=== PATIENT | female | born 1930 | race Caucasian/White ===

== ENCOUNTER 2019-05-15 17:35 | Inpatient (IN) | payer MEDICARE ==
[2019-05-15 17:52] LABS: ABS Lymphocytes 0.1 10^3/ul (1.0-4.8); ABS Neutrophils 4.3 10^3/ul (1.5-7.7); Eosinophil % 0.2 %; Hematocrit 32 % (35-47); Hemoglobin 10.9 g/dL (12.0-16.0); Lymphocyte % 1.8 %; Mean Corpuscular HGB Conc 34 g/dL (31-36); Mean Corpuscular Hemoglobin 32 pg (27-31); Mean Corpuscular Volume 93 fL (80-97); Mean Platelet Volume 9.8 fL (7.4-10.4); Nucleated Red Blood Cells % 0.1; Platelet Count 189 10^3/uL (150-450); Red Blood Count 3.47 10^6 /uL (3.70-4.87); Red Cell Distribution Width 17 % (10-15); White Blood Count 4.4 10^3/uL (3.5-10.8)
[2019-05-15 18:01] LABS: Activated Partial Thrombo Time 23.7 seconds (26.0-38.0); INR 0.9 (0.82-1.09)
[2019-05-15 18:09] LABS: ALT 27 U/L (7-52); AST 25 U/L (13-39); Albumin 3.2 g/dL (3.2-5.2); Albumin/Globulin Ratio 1.1 (1-3); Alkaline Phosphatase 94 U/L (34-104); Anion Gap 9 mmol/L (2-11); BUN/Creatinine Ratio 21.7 (8-20); Blood Urea Nitrogen 68 mg/dL (6-24); C Reactive Protein 79.93 mg/L (<8.01); CO2 Carbon Dioxide 19 mmol/L (22-32); Calcium 9.8 mg/dL (8.6-10.3); Chloride 106 mmol/L (101-111); Creatine Kinase 159 U/L (10-223); EGFR African American 16.9 (>60); Globulin 2.8 g/dL (2-4); Glucose 322 mg/dL (70-100); Potassium 5.1 mmol/L (3.5-5.0); Sodium 134 mmol/L (135-145)
[2019-05-15 18:12] LABS: CKMB ng/mL 5.5 ng/mL (0.6-6.3)
--- NOTE | 2019-05-15 18:34 | ED ---
HPI Cardiac - HPI Summary HPI Summary: LEVEL 5 CAVEAT- DEMENTIA Pt is an 89 year old F presenting to [facility] by EMS accompanied by son, Cezar and son's SO, Elsi presents in severe respiratory distress with decreased mental status, nonverbal on arrival. Per [facility], who brought pt in on CPAP, pt has kidney failure, CHF, edema. Pt is a Hospice candidate. Per EMS O2 sats were in the 70's when they arrived and improved to the mid-80's with CPAP. Pt was admitted to [facility] yesterday. 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 Dr. Romero in room immediately upon arrival at 17:35. Bipap instated immediately. Vital signs while in room: HR 88 BP 100/74, O2 sat 84% on CPAP on arrival Pts son reports that pt was in [facility] and DC'd yesterday to [facility]. Pt has a DNR/DNI. He reports that pts left arms ecchymosis is due to a procedure done at [place] , but he does not know the details of that, because he was not in [place], his sister was, and she is not here in the ED because she is ill today. Son was with pt today and reports she seemed okay, eating, though nodding off. Son also reports that pt has had heart surgery in [place] in the past. Home Medications Medication Instructions Recorded Confirmed Type Acetaminophen TAB* [Tylenol TAB*] 650 mg PO Q4H PRN 05/15/19 05/15/19 History Albuterol HFA INHALER* [Ventolin 2 puff INH Q4H PRN 05/15/19 05/15/19 History HFA Inhaler*] Aspirin EC TAB* [Ecotrin EC Low 81 mg PO DAILY 05/15/19 05/15/19 History Dose 81 MG*] Atorvastatin* [Lipitor*] 80 mg PO DAILY 05/15/19 05/15/19 History Bumetanide TAB* [Bumex 1 MG TAB*] 1 mg PO DAILY 05/15/19 05/15/19 History Carvedilol TAB* [Coreg TAB*] 12.5 mg PO BID 05/15/19 05/15/19 History Clopidogrel TAB* [Plavix TAB*] 75 mg PO DAILY 05/15/19 05/15/19 History Glycerin ADULT SUPP* 1 supp NE DAILY PRN 05/15/19 05/15/19 History Insulin LISPRO* [HumaLOG*] 2 units SUBCUT AC 05/15/19 05/15/19 History Magnesium Hydroxide LIQ* [Milk of 30 ml PO Q72HR PRN 05/15/19 05/15/19 History Magnesia LIQ*] Multivitamins/Minerals TAB* 1 tab PO DAILY 05/15/19 05/15/19 History [Theragran/minerals TAB*] NIFEdipine [Procardia Xl] 90 mg PO DAILY 05/15/19 05/15/19 History Pantoprazole TAB * [Protonix TAB*] 40 mg PO DAILY 05/15/19 05/15/19 History Sodium Phosphate,[place]-Dibasic 133 ml NE DAILY PRN 05/15/19 05/15/19 History [Enema Ready To Use] hydrALAZINE TAB* [Apresoline TAB*] 25 mg PO TID 05/15/19 05/15/19 History LEVEL 5 CAVEAT- DEMENTIA - History of Current Complaint Chief Complaint: EDRespiratoryDistress Stated Complaint: DIFFICULTY BREATHING PER EMS Time Seen by Provider: 05/15/19 17:38 Hx Obtained From: Family/Specialist Field Engineer - son, and son's SO, EMS Hx From Patient Unobtainable Due To: Extremis - pt nonverbal due to respiratory distress Onset/Duration: Started Hours Ago Timing: Constant Initial Severity: Severe Current Severity: Severe Pain Intensity: 0 - no pain, severity describes SOB Pain Scale Used: 0-10 Numeric Chest Pain Radiates: No Aggravating Factor(s): Nothing Alleviating Factor(s): Nothing Associated Signs and Symptoms: Positive: Shortness of Breath, Other: - decreased mental status - Allergy/Home Medications Allergies/Adverse Reactions: Allergies Allergy/AdvReac Type Severity Reaction Status Date / Time No Known Allergies Allergy Verified 03/16/15 18:15 Home Medications: Home Medications Acetaminophen TAB* [Tylenol TAB*] 650 mg PO Q4H PRN 05/15/19 [History Confirmed 05/15/19] Albuterol HFA INHALER* [Ventolin HFA Inhaler*] 2 puff INH Q4H PRN 05/15/19 [ History Confirmed 05/15/19] Aspirin EC TAB* [Ecotrin EC Low Dose 81 MG*] 81 mg PO DAILY 05/15/19 [History Confirmed 05/15/19] Atorvastatin* [Lipitor*] 80 mg PO DAILY 05/15/19 [History Confirmed 05/15/19] Bumetanide TAB* [Bumex 1 MG TAB*] 1 mg PO DAILY 05/15/19 [History Confirmed 01/02] Carvedilol TAB* [Coreg TAB*] 12.5 mg PO BID 05/15/19 [History Confirmed 05/15/19 ] Clopidogrel TAB* [Plavix TAB*] 75 mg PO DAILY 05/15/19 [History Confirmed ] Glycerin ADULT SUPP* 1 supp NE DAILY PRN 05/15/19 [History Confirmed 05/15/19] Insulin LISPRO* [HumaLOG*] 2 units SUBCUT AC 05/15/19 [History Confirmed ] Magnesium Hydroxide LIQ* [Milk of Magnesia LIQ*] 30 ml PO Q72HR PRN 05/15/19 [ History Confirmed 05/15/19] Multivitamins/Minerals TAB* [Theragran/minerals TAB*] 1 tab PO DAILY 05/15/19 [ History Confirmed 05/15/19] NIFEdipine [Procardia Xl] 90 mg PO DAILY 05/15/19 [History Confirmed 05/15/19] Pantoprazole TAB * [Protonix TAB*] 40 mg PO DAILY 05/15/19 [History Confirmed ] Sodium Phosphate,[place]-Dibasic [Enema Ready To Use] 133 ml NE DAILY PRN 05/15/19 [History Confirmed 05/15/19] hydrALAZINE TAB* [Apresoline TAB*] 25 mg PO TID 05/15/19 [History Confirmed 01/02] PMH/Surg Hx/FS Hx/Imm Hx Previously Healthy: No - LEVEL 5 CAVEAT- EXTREMIS Endocrine/Hematology History: Reports: Hx Diabetes Denies: Hx Thyroid Disease Cardiovascular History: Reports: Hx Angina, Hx Atrial Fibrillation, Hx Cardiomegaly - per CXR, Hx Congestive Heart Failure - diastolic , Hx Hypercholesterolemia, Hx Hypertension, Hx Myocardial Infarction Denies: Hx Syncope Respiratory History: Denies: Hx Asthma, Hx Chronic Obstructive Pulmonary Disease (COPD) History: Reports: Hx Renal Disease - CKD, Other Problems/Disorders - UTI's Musculoskeletal History: Reports: Hx Arthritis, Hx Gout Denies: Hx Back Problems Sensory History: Reports: Hx Cataracts - removed, Hx Glaucoma, Hx Macular Degeneration Denies: Hx Hearing Problem Opthamlomology History: Reports: Hx Cataracts - removed, Hx Glaucoma, Hx Macular Degeneration Neurological History: Reports: Hx Dementia Denies: Hx Migraine, Hx Seizures - Surgical History Surgical History: Yes Surgery Procedure, Year, and Place: appendix. "heart surgery in [place]". ? heart cath with stent in [place], [place] DC'd 05/14/19 Infectious Disease History: Unable to Obtain/Confirm Infectious Disease History: Denies: Traveled Outside the [place] in Last 30 Days - Family History Known Family History: Positive: Hypertension - Social History [facility]: [facility] Alcohol Use: Rare Substance Use Type: Reports: None Smoking Status (MU): Former Smoker Review of Systems Constitutional: Negative Positive: Shortness Of Breath, Other - severe respiratory distress and hypoxia Skin: Negative Positive: Bruising - extensive bruising left forearm, also chest and right forearm Neurological: Other - lethargic, non verbal All Other Systems Reviewed And Are Negative: No - Comments Additional Review of Systems Comments: LEVEL 5 CAVEAT- EXTREMIS Physical Exam - Summary Physical Exam Summary: LEVEL 5 CAVEAT- DEMENTIA and EXTREMIS Appearance: Ill-appearing, no apparent acute pain distress, obese, in extremis on CPAP from EMS, changed to BiPAP on adm to ED, nonverbal Skin: Warm, color reflects adequate perfusion, dry, multiple purple ecchymoses on bilateral arms and chest Head: Normal Head/Face inspection, atraumatic Eyes: Conjunctiva clear, pupils midpoint, EOMI, prefers eyes closed ENT: Normal inspection Neck: Supple, no nodes, no JVD Respiratory: decreased BS throughout, crackles both bases, severe respiratory distress Cardio: RRR, No murmur, pulses normal, brisk capillary refill Abdomen: Soft, nontender Bowel sounds: Present Musculoskeletal: left forearm with confluent, circumferential dark purple ecchymosis from fingers to antecubital area, with 3cm blood blister on dorsum of hand at 4th/5th metacarpals, multiple purple ecchymoses across chest and right forearm 2+ edema bilaterally. Psychological: lethargic Neuro: Opens eyes to voice, has some words, muscle tone normal, facial symmetry , moves all extremities, no focal deficit. GCS 10 Triage Information Reviewed: Yes Vital Signs On Initial Exam: Initial Vitals Pulse Resp Pulse Ox 64 12 93 05/15/19 17:40 05/15/19 17:40 05/15/19 17:40 Vital Signs Reviewed: Yes - [place] Coma Scale Best Eye Response: 3 - To Speech Best Motor Response: 5 - Purposeful Movement Best Verbal Response: 2 - Incomprehensible Words Coma Scale Total: 10 Diagnostics - Vital Signs Vital Signs Temp Pulse Resp BP Pulse Ox 05/15/19 18:16 26 05/15/19 18:00 67 31 76/45 95 05/15/19 17:45 96.2 F 64 22 91/43 93 05/15/19 17:42 64 34 98 05/15/19 17:41 65 29 91/43 91 05/15/19 17:40 64 12 93 - Laboratory Lab Results: Lab Results 05/15/19 05/15/19 05/15/19 Range/Units 17:40 17:40 17:40 WBC 4.4 (3.5-10.8) 10^3/uL RBC 3.47 L (3.70-4.87) 10^6 /uL Hgb 10.9 L (12.0-16.0) g/dL Hct 32 L (35-47) % MCV 93 (80-97) fL MCH 32 H (27-31) pg MCHC 34 (31-36) g/dL RDW 17 H (10-15) % Plt Count 189 (150-450) 10^3/uL MPV 9.8 (7.4-10.4) fL Neut % (Auto) 97.6 % Lymph % (Auto) 1.8 % [place] % (Auto) 0.3 % Eos % (Auto) 0.2 % Baso % (Auto) 0.1 % Absolute Neuts (auto) 4.3 (1.5-7.7) 10^3/ul Absolute Lymphs (auto) 0.1 L (1.0-4.8) 10^3/ul Absolute Monos (auto) 0.0 (0-0.8) 10^3/ul Absolute Eos (auto) 0.0 (0-0.6) 10^3/ul Absolute Basos (auto) 0.0 (0-0.2) 10^3/ul Absolute Nucleated RBC 0.0 10^3/ul Nucleated RBC % 0.1 INR (Anticoag Therapy) 0.90 (0.82-1.09) APTT 23.7 L (26.0-38.0) seconds Sodium 134 L (135-145) mmol/L Potassium 5.1 H (3.5-5.0) mmol/L Chloride 106 (101-111) mmol/L Carbon Dioxide 19 L (22-32) mmol/L Anion Gap 9 (2-11) mmol/L BUN 68 H (6-24) mg/dL Creatinine 3.14 H (0.51-0.95) mg/dL Est GFR ( Amer) 16.9 (>60) Est GFR (Non-Af Amer) 14.0 (>60) BUN/Creatinine Ratio 21.7 H (8-20) Glucose 322 H (70-100) mg/dL Lactic Acid (0.5-2.0) mmol/L Calcium 9.8 (8.6-10.3) mg/dL Total Bilirubin 0.80 (0.2-1.0) mg/dL AST 25 (13-39) U/L ALT 27 (7-52) U/L Alkaline Phosphatase 94 (34-104) U/L Total Creatine Kinase 159 (10-223) U/L CK-MB (CK-2) 5.5 (0.6-6.3) ng/mL Troponin I 0.20 H* (<0.04) ng/mL C-Reactive Protein 79.93 H (<8.01) mg/L B-Natriuretic Peptide (<=100) pg/mL Total Protein 6.0 L (6.4-8.9) g/dL Albumin 3.2 (3.2-5.2) g/dL Globulin 2.8 (2-4) g/dL Albumin/Globulin Ratio 1.1 (1-3) 05/15/19 05/15/19 Range/Units 17:40 17:40 WBC (3.5-10.8) 10^3/uL RBC (3.70-4.87) 10^6 /uL Hgb (12.0-16.0) g/dL Hct (35-47) % MCV (80-97) fL MCH (27-31) pg MCHC (31-36) g/dL RDW (10-15) % Plt Count (150-450) 10^3/uL MPV (7.4-10.4) fL Neut % (Auto) % Lymph % (Auto) % [place] % (Auto) % Eos % (Auto) % Baso % (Auto) % Absolute Neuts (auto) (1.5-7.7) 10^3/ul Absolute Lymphs (auto) (1.0-4.8) 10^3/ul Absolute Monos (auto) (0-0.8) 10^3/ul Absolute Eos (auto) (0-0.6) 10^3/ul Absolute Basos (auto) (0-0.2) 10^3/ul Absolute Nucleated RBC 10^3/ul Nucleated RBC % INR (Anticoag Therapy) (0.82-1.09) APTT (26.0-38.0) seconds Sodium (135-145) mmol/L Potassium (3.5-5.0) mmol/L Chloride (101-111) mmol/L Carbon Dioxide (22-32) mmol/L Anion Gap (2-11) mmol/L BUN (6-24) mg/dL Creatinine (0.51-0.95) mg/dL Est GFR ( Amer) (>60) Est GFR (Non-Af Amer) (>60) BUN/Creatinine Ratio (8-20) Glucose (70-100) mg/dL Lactic Acid 2.0 (0.5-2.0) mmol/L Calcium (8.6-10.3) mg/dL Total Bilirubin (0.2-1.0) mg/dL AST (13-39) U/L ALT (7-52) U/L Alkaline Phosphatase (34-104) U/L Total Creatine Kinase (10-223) U/L CK-MB (CK-2) (0.6-6.3) ng/mL Troponin I (<0.04) ng/mL C-Reactive Protein (<8.01) mg/L B-Natriuretic Peptide 370 H (<=100) pg/mL Total Protein (6.4-8.9) g/dL Albumin (3.2-5.2) g/dL Globulin (2-4) g/dL Albumin/Globulin Ratio (1-3) Result Diagrams: 05/15/19 17:40 05/15/19 17:40 Lab Statement: Any lab studies that have been ordered have been reviewed, and results considered in the medical decision making process. - Radiology CXR Radiology Interpretation Completed By: ED Physician Summary of Radiographic Findings: vascular congestion, poor inspiration - EKG 1746 Cardiac Rate: NL - 63 EKG Rhythm: Sinus Rhythm ST Segment: Non-Specific Ectopy: None Summary of EKG Findings: An EKG at 1746 reveals 1st degree AV block, Right Bundle Branch Block, nml QTC, left axis (-83), No STEMI, no significant change since 03/19/15. Re-Evaluation - Re-Evaluation First Eval Change: Worse Comment: Pt blood pressure dropped. Vitals HR 65 bpm, BP 76/74, O2 sat 85%. Head of bed lowered. Pt opened eyes to voice, and uttered some words, incomprehensible. Second Eval Re-Evaluation Time: 18:25 Change: Unchanged Comment: Dr. Romero aware of Troponin of 0.2 at 18:25. Disposition - Course Course Of Treatment: 89 yo F arrives by EMS from [facility] in severe respiratory distress on CPAP. Pt is a DNR/DNI. Pt was just DC'd from [facility] yesterday and admitted to [facility]. Pt's left arm with large ecchymosis may be due to bruising from left radial cardiac catheterization , because son states something about a stent, but does not know details. States his sister knows the details, but she is sick, and lives in [place], so is not in the ED at this time. Pt was placed on BiPAP by respiratory therapy (), and BP dropped some but pt improved enough to say some short bursts of words. Son and son's SO in the room. Dr. Vinesl in with pt and family to determine level of care. An EKG at 1746 reveals SR 1st degree AV block, Right Bundle Branch Block, nml QTC, left axis (-83), No STEMI, no significant change since 03/19/15. CXR with vascular congestion. Pt with respiratory failure, elevated troponin, hyperkalemia, elevated glucose, elevated BNP, anemia, CKD stage 5. Dr. Beck accepts pt for admission. - Differential Dx - Cardiopulmonary Differential Diagnoses - Cardiopulmonary: Acute Dyspnea, Aortic Stenosis, CAD, CHF, Lower Resp Infection, Pulmonary Edema - Diagnoses Provider Diagnoses: Respiratory failure, Elevated troponin, CKD (chronic kidney disease) stage 5, GFR less than 15 ml/min, Hyperkalemia, Hyperglycemia due to type 2 diabetes mellitus, Hypotension, Anemia, Hematoma of arm - Physician Notifications Discussed Care Of Patient With: Alia Beck - admit Time Discussed With Above Provider: 18:15 Instructed by Provider To: Admit As Inpatient - Critical Care Time Critical Care Time: 30-74 min - 30 mins Discharge - Sign-Out/Discharge Documenting (check all that apply): Patient Departure - Admission All imaging exams completed and their final reports reviewed: No Patient Received Moderate/Deep Sedation with Procedure: No - Discharge Plan Condition: Guarded Disposition: ADMITTED TO [facility] - Billing Disposition and Condition Condition: GUARDED Disposition: Admitted to [facility] - Attestation Statements Document Initiated by Bandar: Yes Documenting Scribe: Charisse Sheets Provider For Whom Bandar is Documenting (Include Credential): Dr. Teagan Romero MD Scribe Attestation: Charisse Whitney scribed for Dr. Teagan Romero MD on 05/16/19 at 1542. Scribe Documentation Reviewed: Yes Provider Attestation: The documentation as recorded by the Charisse rodas accurately reflects the service I personally performed and the decisions made by , Dr. Teagan Romero MD Status of Scribe Document: Viewed
[2019-05-15] MEDS ORDERED: Morphine 4 MG/ML VIAL (1 ml) 4 MG/ML VIAL IV PRN (18:51)
[2019-05-15] MEDS ORDERED: Furosemide IV* 10 MG/ML VIAL (40 MG) IV ONE (18:52)
[2019-05-15] MEDS ORDERED: Morphine 4 MG/ML VIAL (1 ml) 4 MG/ML VIAL ONE (19:00)
[2019-05-15] MEDS: Morphine 4 MG/ML VIAL (1 ml) 4 MG/ML VIAL IV PRN ×2 (19:02→23:46)
[2019-05-15] MEDS ORDERED: Lorazepam PYXIS KEY PRN (20:49)
--- NOTE | 2019-05-15 23:23 | HP ---
HISTORY OF PRESENT ILLNESS: DATE OF ADMISSION: 05/15/19 PRIMARY CARE PROVIDER: [facility]. LOCKSTITCH LINING MAKER: The patient's son, Cezar oJe. CODE STATUS: DNR/DNI and comfort measures only. CHIEF COMPLAINT: Respiratory distress. SOURCE OF INFORMATION: HPI is obtained from family and chart history. The patient is a poor historian secondary to clinical status. 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 The patient has dementia at baseline and is oriented to herself and roughly event secondary to after suffering from stroke. Her son and daughter-in- law accompanied her from [facility] after she was briefly unresponsive and gasping for air. Per her son, who is her healthcare proxy, she has had numerous troubles with her heart. She was last here in [facility] [place] where she was transferred in the setting of active ACS with triple vessel disease. The son reports that since 2015, she has had ongoing stents and re-stents, diagnosed with chronic congestive heart failure with unknown ejection fraction. As per above, last ejection fraction in our records is 40% and has even have a TAVR. In the emergency room, she presents hypotensive to 80/50, hypoxic with gross volume overload and signs of hypercarbia. Her blood pressure on arrival was actually 75/50 improved to 80/50. She is afebrile, pulse is in the 60s. She is satting 95% immediately on BiPAP, which was placed by EMS, but initially at 85% on 4 L nasal cannula. Labs were done, which showed elevated troponin, anemia, creatinine elevated to 3, hyperkalemia, hyponatremia, BNP elevated to 370. On discussion with family and review of her MOLST form, she is already a DNR/DNI. Family felt that if there is no significant meaningful return to more independent lifestyle that the patient would not want to have aggressive interventions and would not want to be on pressors. I shared with them my concern that she is in congestive heart failure, hypercapnic respiratory failure , and likely kidney failure and that dialysis, pressors, and continuous BiPAP would be warranted if she were to have all lifesaving measures indicated. After discussion and given her illness and her wishes and overall poor prognosis , they elect for comfort measures only stating that she hated hospitals to begin with and wanted to preserve as much dignity as possible during her illnesses. PAST MEDICAL HISTORY: Heart failure with reduced ejection fraction, CAD, status post PCI, AFib no longer on anticoagulation, history of bleeding gastric ulcers, chronic kidney disease, multiple strokes with resultant dementia and residual weakness, BEE/OHS with persistent hypercarbic respiratory failure. PAST SURGICAL HISTORY: Appendectomy, tonsillectomy, TAVR and multiple stents. MEDICATIONS PRIOR TO ADMISSION: The patient was takin. Aspirin 81 mg. 2. Plavix 75 mg. 3. Atorvastatin 80 mg. 4. Bumex 1 mg p.o. daily. 5. Carvedilol 12.5 mg p.o. b.i.d. 6. Hydralazine 25 mg p.o. t.i.d. 7. Nifedipine 90 mg p.o. daily. 8. Pantoprazole 40 mg p.o. daily. 9. Albuterol 2 puffs inhaled q.4 hours 10. Acetaminophen 650 mg p.o. q. 4 hours p.r.n. ALLERGIES: No known drug allergies. FAMILY HISTORY: Unable to be obtained. 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 She currently lives at [place]. She formerly lived with her son. She is lifetime nontobacco use, no alcohol or illicit. REVIEW OF SYSTEMS: Unable to be obtained secondary to status of the patient. PHYSICAL EXAMINATION GENERAL APPEARANCE: This is an ill-appearing and elderly woman in mild respiratory distress with some gasping, obese. VITAL SIGNS: At the time of physical exam, blood pressure is 83/44, heart rate 66, respiratory rate 24, oxygen saturation is 91% on 4 L nasal cannula. HEENT: Pupils are equal and reactive. Extraocular muscles are intact. Mucous membranes are moist. NECK: Supple. RESPIRATORY: She has diffuse crackles in anterior lung ricketts with cardiac wheeze, diffuse rhonchi. No focal consolidation. Some accessory muscles are used with a respiratory rate in the 25, mild gasping. CARDIAC: She has distant heart sounds, soft, S1, S2. No appreciable murmurs, rubs, or gallop. ABDOMEN: Belly is obese, distended, nontender. Normoactive bowel sounds. EXTREMITIES: She has 2+ pitting edema in bilateral lower extremity. She is currently in CAM boots, 2+ edema in bilateral upper extremities NEUROLOGIC: The patient follows commands. Cranial nerves are roughly intact. She is oriented to herself, but has slurred nonsensical speech. She is unable to answer any of my other questions appropriately, but she can follow motor exam and moves all 4 limbs spontaneously. SKIN: She has numerous hematomas throughout her body, which from recent hospital stay on left anterior surface of hand, 4 cm tense bulla consistent with prior hematoma. LABS AND STUDIES: White blood cell count 4, hemoglobin 10, hematocrit 32, and platelets 189. Sodium 134, potassium 5.1, carbon dioxide 19, anion gap 9, BUN 68, creatinine 3.14, glucose 322, lactic acid 2, total bili 0.8, AST 25, ALT 27 , alk phos is 94, troponin is 0.2. CRP 79, total protein 6, BNP 370. Imaging done includes a chest x-ray, which shows diffuse bilateral pulmonary edema, small lung volumes, and cardiomegaly, and EKG shows sinus rhythm with a right bundle branch block and left anterior fascicular block. Imaging and labs reviewed by myself. ASSESSMENT AND PLAN: An 89-year-old female with past medical history of heart failure with reduced ejection fraction, coronary artery disease status post distant percutaneous coronary intervention, atrial fibrillation no longer on anticoagulation, chronic kidney disease, history of cerebrovascular accident with dementia and residual weakness, recently hospitalized at [facility] with urinary tract infection and severe AMS, presents with hypercarbic respiratory failure, acute kidney injury on chronic kidney disease, acute exacerbation of systolic heart failure in the setting of multiple morbidities with poor prognosis and discussion with family and patient wishes the patient is made comfort measures only and to be admitted for treatment of her symptoms and what is viewed to be an acute decompensation of her chronic comorbidities and possibly transition to the active dying process. Hospital Course By Problems: 1. Heart failure exacerbation. The patient will be given Lasix x1 for comfort and morphine for air hunger. 2. RAMIN on CKD. The patient is already volume overloaded. Ideally she would be diuresed with pressors given her acute decompensated heart failure state. This is not underlying with the patient's goals and thus we will just continue dialysis. We will just continue p.r.n. diuresis. The patient may need higher doses of Lasix to be efficacious given her creatinine. 3. Hypercarbic respiratory failure. Patient was initially on BiPAP continuous, .which is not consistent with her wishes and MOLST form was updated to reflect this. She will be placed on oxygen for comfort care and treated with morphine for any other signs of respiratory failure. 4. PAF, no longer an AC. The patient is not to be monitored on tele, consistent with comfort measures only. 5. CVA, status post infarct with dementia. The patient is oriented to herself only at baseline. 6. DVT prophylaxis. Unnecessary secondary to the patient goals of care. 7. FEN. Unrestricted diet. 8. Code status is DNR/DNI with comfort measures only. No BiPAP, no pressors. Consultations during this hospitalization will include palliative care if needed TIME SPENT: Sixty five minutes was spent in the planning of this admission with over half of that spent directly at the bedside with the patient providing direct patient care, plan of care was discussed with family who wholeheartedly agree with comfort measures only and wanted help transition this patient in pain free manner given her multi-morbidity and decompensation of her chronic medical problems. DISPOSITION AT THE TIME OF ADMISSION: The patient is stable to be admitted to the medical floor for comfort measures only and transition to palliative care. [id number]/CPS #: [id number] MTDD
[2019-05-16] MEDS: LORazepam INJ* 2 MG/ML 1 ML VIAL IV PUSH PRN ×3 (01:20→09:31)
[2019-05-16] MEDS: Morphine 4 MG/ML VIAL (1 ml) 4 MG/ML VIAL IV PRN (07:22)
--- NOTE | 2019-05-16 07:39 | PN ---
Subjective Date of Service: 05/16/19 Interval History: HD # 1 89 F HFreEF, CVA and dementia, Hypercarbic resp failure presents with hypercarbia, AMS, gross volume overload, admitted for YOKE PRESSER after discussion with family Overnight no acute events This morning, seems gurgling more and more uncomfortable, minimally responsive, wearing O2, we discuss transitioning to gtt of morphine for airhunger, family gathered and feels she had a peaceful night, feel that this is her time and woiuld like gtt. No further questions or needs Objective Active Medications: Lorazepam (Ativan Inj*) 1 mg IV PUSH Q2H PRN PRN Reason: ANXIETY Last Admin: 05/16/19 06:33 Dose: 1 mg Miscellaneous (Ativan Pyxis Serrano) 1 ea N/A .ATIVAN IV SERRANO PRN PRN Reason: PYXIS SERRANO Morphine Sulfate (Morphine 4 Mg/Ml Vial (1 Ml)) 2 mg IV Q1H PRN PRN Reason: DISCOMFORT Last Admin: 05/16/19 07:22 Dose: 2 mg Vital Signs - 8 hr 05/15/19 05/16/19 05/16/19 23:46 00:46 01:20 Respiratory 22 22 22 Rate 05/16/19 05/16/19 05/16/19 02:54 06:33 07:22 Respiratory 20 22 24 Rate Oxygen Devices in Use Now: Nasal Cannula Appearance: Minimally responsive Eyes: No Scleral Icterus Ears/Nose/Mouth/Throat: NL Teeth, Lips, Gums Respiratory: - - Diffuse cardiac wheeze and crackles Skin: No Rash or Ulcers Neurological: - - Restless only when touched Result Diagrams: 05/15/19 17:40 05/15/19 17:40 Additional Lab and Data: Lab Results 05/15/19 05/15/19 05/15/19 Range/Units 17:40 17:40 17:40 WBC 4.4 (3.5-10.8) 10^3/uL RBC 3.47 L (3.70-4.87) 10^6 /uL Hgb 10.9 L (12.0-16.0) g/dL Hct 32 L (35-47) % MCV 93 (80-97) fL MCH 32 H (27-31) pg MCHC 34 (31-36) g/dL RDW 17 H (10-15) % Plt Count 189 (150-450) 10^3/uL MPV 9.8 (7.4-10.4) fL Neut % (Auto) 97.6 % Lymph % (Auto) 1.8 % Scott % (Auto) 0.3 % Eos % (Auto) 0.2 % Baso % (Auto) 0.1 % Absolute Neuts (auto) 4.3 (1.5-7.7) 10^3/ul Absolute Lymphs (auto) 0.1 L (1.0-4.8) 10^3/ul Absolute Monos (auto) 0.0 (0-0.8) 10^3/ul Absolute Eos (auto) 0.0 (0-0.6) 10^3/ul Absolute Basos (auto) 0.0 (0-0.2) 10^3/ul Absolute Nucleated RBC 0.0 10^3/ul Nucleated RBC % 0.1 INR (Anticoag Therapy) 0.90 (0.82-1.09) APTT 23.7 L (26.0-38.0) seconds Sodium 134 L (135-145) mmol/L Potassium 5.1 H (3.5-5.0) mmol/L Chloride 106 (101-111) mmol/L Carbon Dioxide 19 L (22-32) mmol/L Anion Gap 9 (2-11) mmol/L BUN 68 H (6-24) mg/dL Creatinine 3.14 H (0.51-0.95) mg/dL Est GFR ( Amer) 16.9 (>60) Est GFR (Non-Af Amer) 14.0 (>60) BUN/Creatinine Ratio 21.7 H (8-20) Glucose 322 H (70-100) mg/dL Lactic Acid (0.5-2.0) mmol/L Calcium 9.8 (8.6-10.3) mg/dL Total Bilirubin 0.80 (0.2-1.0) mg/dL AST 25 (13-39) U/L ALT 27 (7-52) U/L Alkaline Phosphatase 94 (34-104) U/L Total Creatine Kinase 159 (10-223) U/L CK-MB (CK-2) 5.5 (0.6-6.3) ng/mL Troponin I 0.20 H* (<0.04) ng/mL C-Reactive Protein 79.93 H (<8.01) mg/L B-Natriuretic Peptide (<=100) pg/mL Total Protein 6.0 L (6.4-8.9) g/dL Albumin 3.2 (3.2-5.2) g/dL Globulin 2.8 (2-4) g/dL Albumin/Globulin Ratio 1.1 (1-3) 05/15/19 05/15/19 Range/Units 17:40 17:40 WBC (3.5-10.8) 10^3/uL RBC (3.70-4.87) 10^6 /uL Hgb (12.0-16.0) g/dL Hct (35-47) % MCV (80-97) fL MCH (27-31) pg MCHC (31-36) g/dL RDW (10-15) % Plt Count (150-450) 10^3/uL MPV (7.4-10.4) fL Neut % (Auto) % Lymph % (Auto) % Scott % (Auto) % Eos % (Auto) % Baso % (Auto) % Absolute Neuts (auto) (1.5-7.7) 10^3/ul Absolute Lymphs (auto) (1.0-4.8) 10^3/ul Absolute Monos (auto) (0-0.8) 10^3/ul Absolute Eos (auto) (0-0.6) 10^3/ul Absolute Basos (auto) (0-0.2) 10^3/ul Absolute Nucleated RBC 10^3/ul Nucleated RBC % INR (Anticoag Therapy) (0.82-1.09) APTT (26.0-38.0) seconds Sodium (135-145) mmol/L Potassium (3.5-5.0) mmol/L Chloride (101-111) mmol/L Carbon Dioxide (22-32) mmol/L Anion Gap (2-11) mmol/L BUN (6-24) mg/dL Creatinine (0.51-0.95) mg/dL Est GFR ( Amer) (>60) Est GFR (Non-Af Amer) (>60) BUN/Creatinine Ratio (8-20) Glucose (70-100) mg/dL Lactic Acid 2.0 (0.5-2.0) mmol/L Calcium (8.6-10.3) mg/dL Total Bilirubin (0.2-1.0) mg/dL AST (13-39) U/L ALT (7-52) U/L Alkaline Phosphatase (34-104) U/L Total Creatine Kinase (10-223) U/L CK-MB (CK-2) (0.6-6.3) ng/mL Troponin I (<0.04) ng/mL C-Reactive Protein (<8.01) mg/L B-Natriuretic Peptide 370 H (<=100) pg/mL Total Protein (6.4-8.9) g/dL Albumin (3.2-5.2) g/dL Globulin (2-4) g/dL Albumin/Globulin Ratio (1-3) Assess/Plan/Problems-Billing Assessment: 89 F HFreEF, CVA and dementia, Hypercarbic resp failure presents with hypercarbia, AMS, gross volume overload, admitted for YOKE PRESSER after discussion with family - Patient Problems (1) Hypercapnic respiratory failure Current Visit: Yes Status: Acute Code(s): J96.92 - RESPIRATORY FAILURE, UNSPECIFIED WITH HYPERCAPNIA SNOMED Code(s): 431654111 Comment: - Continue YOKE PRESSER (2) Heart failure with reduced ejection fraction Current Visit: Yes Status: Acute Code(s): I50.20 - UNSPECIFIED SYSTOLIC ( CONGESTIVE) HEART FAILURE SNOMED Code(s): 128750751 Comment: - Gross volume overload on exam, e/o cardiogenic shock (3) Comfort measures only status Current Visit: Yes Status: Acute Code(s): Z51.5 - ENCOUNTER FOR PALLIATIVE CARE SNOMED Code(s): 88891696966021 Comment: - Morphine gtt @ 3 per hour, atropine and ativan PRN
[2019-05-16] MEDS: Atropine 1% (ORAL/SL)* 15 ML BTL SL PRN ×3 (09:31→15:39)
[2019-05-16] MEDS ORDERED: Morphine PCA 5 MG/ML * Titrate per Protocol PCA SCH (10:00)
[2019-05-16] MEDS ORDERED: Morphine PCA LOW DOSE* 1 MG/ML 30 ML SYRINGE PCA SCH (10:00)
[2019-05-16 11:18] VITALS: BP 88/57
--- NOTE | 2019-05-16 18:56 | PN ---
Hospitalist Progress Note Date of Service: 05/16/19 Called to see patient for unresponsiveness. On exam the patient did not respond to verbal or physical stimuli. Absent heart and breath sounds Absent peripheral pulses. Pupils are fixed and dilated. Patient pronounced at 18: 16. Next of kin/family notified. Autopsy declined, they want her to be creamted through [facility]. Organ donation exempt. EDRS is attempted to be completed and certified.
--- NOTE | 2019-05-16 19:57 | DS ---
DISCHARGE/ SUMMARY: DATE OF ADMISSION: 05/15/19 DATE OF : 05/16/19 CONDITION AT THE TIME OF DISCHARGE: . PRIMARY CARE PROVIDER: None. [facility] was the patient's primary residence. PRIMARY DIAGNOSES: 1. Congestive heart failure. 2. Cardiogenic shock. SECONDARY DIAGNOSES: 1. Coronary artery disease. 2. Hypercarbic respiratory failure, chronic, secondary to obesity hypoventilation syndrome. 3. Chronic kidney disease. 4. History of bleeding ulcers. 5. Atrial fibrillation. 6. History of stroke with resultant dementia. MEDICATIONS: None. HISTORY OF PRESENT ILLNESS AND HOSPITAL COURSE: This is an 89-year-old female with the above past me dical history, who presented to [facility] Emergency Room on 05/15/19 after just being discharged from [facility] with UTI and severe altered mental status. She was discharged to [facility] and was there for only 1 day until she started having acute shortness of breath and became unresponsive. In the emergency room, blood pressure was 75/50, she was afebrile, pulse was in the 60s. She was hyp oxic and immediately placed on BiPAP. Her labs were done, which showed elevated troponin, anemia, cr eatinine elevated to 3, hyperkalemia, hyponatremia, and BNP elevated. The patient is DNR/DNI and act ually wanted minimal interventions. Discussion with the family with her signs of gross volume overlo ad and likely cardiogenic shock, the family felt that it was within the patient's goals of care for c omfort measures only given how gravely ill she presented. She was transitioned to morphine drip with Ativan as needed for air hunger and ultimately at 1816 on 05/16/19. Family was present and I answered all questions. They were particularly appreciative of the staff and declined an autopsy. Cause of was cardiogenic shock secondary to congestive heart failure, which was secondary to i schemic cardiomyopathy and coronary artery disease that was longstanding. EDRS certified at the time of as 1816 pronounced. DISPOSITION AT THE TIME OF DISCHARGE: . [id number] #: [id number]
== END 2019-05-16 18:15 | disposition expired | DRG 951 ==
LOC: ED 17:35 → MED 18:57
PROVIDERS: ADMIT Internal Medicine; ATTEND Internal Medicine
DX: Z51.5 Encounter for palliative care (principal); I50.23 Acute on chronic systolic (congestive) heart failure; R40.2222 Coma scale, best verbal response, incomprehensible words, at arrival to emergency department; J96.92 Respiratory failure, unspecified with hypercapnia; I13.0 Hypertensive heart and chronic kidney disease with heart failure and stage 1 through stage 4 chronic kidney disease, or unspecified chronic kidney disease; I50.22 Chronic systolic (congestive) heart failure; E66.2 Morbid (severe) obesity with alveolar hypoventilation; N17.9 Acute kidney failure, unspecified; J96.12 Chronic respiratory failure with hypercapnia; E87.1 Hypo-osmolality and hyponatremia; N18.2 Chronic kidney disease, stage 2 (mild); I25.10 Atherosclerotic heart disease of native coronary artery without angina pectoris; F03.90 Unspecified dementia, unspecified severity, without behavioral disturbance, psychotic disturbance, mood disturbance, and anxiety; Z66 Do not resuscitate; I48.0 Paroxysmal atrial fibrillation; E11.22 Type 2 diabetes mellitus with diabetic chronic kidney disease; M19.90 Unspecified osteoarthritis, unspecified site; M10.9 Gout, unspecified; H35.30 Unspecified macular degeneration; E11.39 Type 2 diabetes mellitus with other diabetic ophthalmic complication; H42 Glaucoma in diseases classified elsewhere; R40.2352 Coma scale, best motor response, localizes pain, at arrival to emergency department; R40.2132 Coma scale, eyes open, to sound, at arrival to emergency department; E11.65 Type 2 diabetes mellitus with hyperglycemia; E87.5 Hyperkalemia; D63.1 Anemia in chronic kidney disease; R57.0 Cardiogenic shock; R79.89 Other specified abnormal findings of blood chemistry; Z95.5 Presence of coronary angioplasty implant and graft; Z68.33 Body mass index [BMI] 33.0-33.9, adult; I69.398 Other sequelae of cerebral infarction; Z95.2 Presence of prosthetic heart valve; I25.2 Old myocardial infarction; Z87.440 Personal history of urinary (tract) infections; Z98.42 Cataract extraction status, left eye; Z98.41 Cataract extraction status, right eye; Z82.49 Family history of ischemic heart disease and other diseases of the circulatory system; Z87.891 Personal history of nicotine dependence
CPT/HCPCS: 36415; 71045; 80053; 82550; 82553; 83605; 83880; 84484; 85025; 85610; 85730; 86140; 87040; 93005; 99285; J1940; J2060; J2270